=== PATIENT | female | born 1940 | race Caucasian/White ===

== ENCOUNTER 2019-12-15 12:49 | Inpatient (IN) ==
[2019-12-15] MEDS ORDERED: Isovue-370 500 ML BOTTLE IVP ONE (13:36)
[2019-12-15] MEDS ORDERED: Ondansetron 4 MG/2 ML VIAL IVP ONE (13:42)
[2019-12-15] MEDS ORDERED: 0.9 % Sodium Chloride 1,000 ML IVC ONE ×2 (13:42→16:19)
[2019-12-15 14:18] LABS: Bilirubin,Urine Negative (Negative); Blood,Urine Negative (Negative); Clarity,Urine Clear (Clear); Color,Urine Light-Yellow (Yellow); Glucose,Urine (UA) Normal (Normal); Ketones,Urine Negative (Negative); Leukocyte Esterase,Urine Negative (Negative); Nitrite,Urine Negative (Negative); PH,Urine 6.5 pH Units (5.0-8.0); Protein,Urine Trace mg/dL (Neg-Trace); Specific Gravity,Urine 1.018 (1.010-1.025); Urobilinogen,Urine Normal (Normal)
[2019-12-15 14:41] LABS: Basophils # 0.1 K/mcL (0.0-0.2); Basophils % 1.1 %; Eosinophils % 0.2 %; Hematocrit 32.1 % (35.3-44.9); Hemoglobin 10.7 g/dL (11.5-15.4); Immature Granulocytes % 0.2 % (0-4); Lymphocytes % 23.1 %; Mean Corpuscular HGB Conc 33.3 g/dL (31.6-35.5); Mean Corpuscular Hemoglobin 33.3 pg (28.0-33.3); Mean Platelet Volume 9.6 fL (9.4-12.4); Monocytes # 0.3 K/mcL (0.0-1.3); Monocytes % 6.9 %; Platelet Count 223 K/mcL (140-400); Red Blood Count 3.21 M/mcL (3.82-4.97); Red Cell Distribution Width 13.3 % (11.5-14.5); Segmented Neutrophils % 68.5 %; White Blood Count 4.4 K/mcL (4.3-11.1)
[2019-12-15 15:14] LABS: Albumin 3.6 g/dL (3.5-5.7); Albumin/Globulin Ratio 1.2 (1.1-2.2); Bilirubin,Direct 0.2 mg/dL (0.0-0.2); Bilirubin,Total 1.2 mg/dL (0.3-1.0); Calcium 13.6 mg/dL (8.6-10.3); Potassium 3.4 mEq/L (3.5-5.1); Total Protein 6.6 g/dL (6.4-8.9); Troponin I 0.04 ng/mL (< 0.04)
[2019-12-15] MEDS ORDERED: Zoledronic Acid (Zometa) 3 MG in 0.9 % Sodium Chloride 100 ML IV ONE (16:19)
[2019-12-15] MEDS ORDERED: Naloxone 0.4 MG/ML INJ IVP PRN (16:57)
[2019-12-15] MEDS ORDERED: 0.9 % Sodium Chloride 1,000 ML IVC SCH (17:30)
[2019-12-15] MEDS: Pantoprazole 40 MG VIAL IVP SCH (18:52)
[2019-12-16 01:10] LABS: Albumin 3.2 g/dL (3.5-5.7); Albumin/Globulin Ratio 1.2 (1.1-2.2); Bilirubin,Total 1.1 mg/dL (0.3-1.0); Calcium 11.7 mg/dL (8.6-10.3); Globulin 2.6 g/dL (2.4-3.5); Potassium 3.9 mEq/L (3.5-5.1); Total Protein 5.8 g/dL (6.4-8.9)
[2019-12-16] MEDS: Ondansetron 4 MG/2 ML VIAL IVP PRN ×3 (02:31→16:44)
[2019-12-16] MEDS: Acetaminophen 325 MG TABLET PO PRN (02:41)
[2019-12-16 05:05] LABS: Basophils % 0.4 %; Eosinophils % 0.2 %; Hematocrit 31.8 % (35.3-44.9); Hemoglobin 10.5 g/dL (11.5-15.4); Immature Granulocytes % 0.6 % (0-4); Lymphocytes # 0.2 K/mcL (0.6-4.6); Mean Corpuscular Volume 102.9 fL (83.0-100.0); Monocytes # 0.1 K/mcL (0.0-1.3); Monocytes % 1.7 %; Neutrophils # 4.4 K/mcL (1.6-8.9); Platelet Count 143 K/mcL (140-400); Red Blood Count 3.09 M/mcL (3.82-4.97); Red Cell Distribution Width 13.4 % (11.5-14.5); Segmented Neutrophils % 93.1 %; White Blood Count 4.7 K/mcL (4.3-11.1)
[2019-12-16 05:42] LABS: Platelet Estimate Normal (Normal)
[2019-12-16] MEDS ORDERED: *HR* Enoxaparin 40 MG/0.4 ML SYRINGE SQ SCH (06:00)
[2019-12-16] MEDS ORDERED: 0.9 % Sodium Chloride 1,000 ML IVC SCH (07:30)
[2019-12-16] MEDS: Pantoprazole 40 MG VIAL IVP SCH (08:22)
[2019-12-17] MEDS: Acetaminophen 325 MG TABLET PO PRN (00:01)
[2019-12-17 03:27] LABS: Basophils % 0.3 %; Eosinophils % 0.8 %; Hematocrit 27.1 % (35.3-44.9); Immature Granulocytes % 1.4 % (0-4); Lymphocytes # 0.1 K/mcL (0.6-4.6); Lymphocytes % 3.9 %; Mean Corpuscular HGB Conc 32.8 g/dL (31.6-35.5); Mean Corpuscular Hemoglobin 33.1 pg (28.0-33.3); Mean Corpuscular Volume 100.7 fL (83.0-100.0); Mean Platelet Volume 9.8 fL (9.4-12.4); Monocytes # 0.1 K/mcL (0.0-1.3); Monocytes % 1.7 %; Neutrophils # 3.3 K/mcL (1.6-8.9); Platelet Count 120 K/mcL (140-400); Red Blood Count 2.69 M/mcL (3.82-4.97); Red Cell Distribution Width 13.5 % (11.5-14.5); Segmented Neutrophils % 91.9 %; White Blood Count 3.6 K/mcL (4.3-11.1)
[2019-12-17 03:33] LABS: Hemoglobin 8.9 g/dL (11.5-15.4)
[2019-12-17 03:46] LABS: Albumin 2.9 g/dL (3.5-5.7); Albumin/Globulin Ratio 1.3 (1.1-2.2); Bilirubin,Total 0.7 mg/dL (0.3-1.0); Calcium 9.8 mg/dL (8.6-10.3); Globulin 2.3 g/dL (2.4-3.5); Total Protein 5.2 g/dL (6.4-8.9)
[2019-12-17 04:00] LABS: Platelet Estimate Normal (Normal)
[2019-12-17] MEDS: *HR* Enoxaparin 30 MG/0.3 ML SYRINGE SQ SCH (04:49)
[2019-12-17] MEDS: Piperacillin/Tazobactam 3.375 GM in 0.9 % Sodium Chloride Mini Bag 100 ML IVPB SCH ×3 (08:42→23:59)
[2019-12-17] MEDS: Pantoprazole 40 MG VIAL IVP SCH (08:44)
[2019-12-18] MEDS: *HR* Enoxaparin 30 MG/0.3 ML SYRINGE SQ SCH (05:11)
[2019-12-18] MEDS ORDERED: carvediloL 6.25 MG TABLET PO SCH (08:00)
[2019-12-18] MEDS: Aspirin Enteric Coated 81 MG Tablet PO SCH (08:34)
[2019-12-18] MEDS: Pantoprazole 40 MG VIAL IVP SCH (08:34)
[2019-12-18] MEDS: Piperacillin/Tazobactam 3.375 GM in 0.9 % Sodium Chloride Mini Bag 100 ML IVPB SCH (08:35)
[2019-12-18] MEDS ORDERED: IBRANCE 100 MG PO SCH (09:00)
[2019-12-18 11:22] LABS: Potassium 3.6 mEq/L (3.5-5.1)
[2019-12-18 11:24] LABS: Hematocrit 28.7 % (35.3-44.9); Hemoglobin 9.5 g/dL (11.5-15.4); Mean Corpuscular HGB Conc 33.1 g/dL (31.6-35.5)
[2019-12-18 11:26] LABS: Eosinophils # 0.1 K/mcL (0.0-0.6); Immature Platelets 3.4 % (1.1-6.1); Lymphocytes # 0.3 K/mcL (0.6-4.6); Mean Corpuscular Hemoglobin 33.5 pg (28.0-33.3); Mean Corpuscular Volume 101.1 fL (83.0-100.0); Neutrophils # 2.3 K/mcL (1.6-8.9); Platelet Count 110 K/mcL (140-400); Red Blood Count 2.84 M/mcL (3.82-4.97); Red Cell Distribution Width 13.4 % (11.5-14.5); White Blood Count 2.7 K/mcL (4.3-11.1)
[2019-12-18 11:42] LABS: Magnesium 1.5 mg/dL (1.6-2.6); Phosphorous < 1.0 mg/dL (2.7-4.5)
[2019-12-18] MEDS ORDERED: Magnesium Sulfate 1 GM/102 ML PIGGYBACK IVPB ONE ×2 (11:54→14:00)
[2019-12-18] MEDS ORDERED: 0.9 % Sodium Chloride 500 ML IVC SCH (12:00)
[2019-12-18 13:28] LABS: Platelet Estimate Slight Decrease (Normal)
[2019-12-18] MEDS: carvediloL 6.25 MG TABLET PO SCH (17:31)
[2019-12-19] MEDS: *HR* Enoxaparin 30 MG/0.3 ML SYRINGE SQ SCH (05:01)
[2019-12-19 07:06] VITALS: BP 150/68
[2019-12-19 07:48] LABS: Calcium 8.1 mg/dL (8.6-10.3); Magnesium 1.6 mg/dL (1.6-2.6); Phosphorous 3.7 mg/dL (2.7-4.5); Potassium 3.7 mEq/L (3.5-5.1)
[2019-12-19] MEDS: Aspirin Enteric Coated 81 MG Tablet PO SCH (07:48)
[2019-12-19] MEDS: Pantoprazole 40 MG VIAL IVP SCH (07:49)
[2019-12-19] MEDS: carvediloL 6.25 MG TABLET PO SCH (07:49)
[2019-12-19] MEDS ORDERED: Amoxicillin/Clavulanate 500 MG TABLET PO SCH (08:00)
[2019-12-19] MEDS ORDERED: FLU Vac QV 20-21 (6Month+)/PF 0.5 ML SYRINGE IM ONE (08:32)
== END 2019-12-19 09:10 | disposition home health service (06) | DRG 918 ==
LOC: EMEROOARM 12:49 → 2ANU 12:49 → SUATTDRO 12-17 15:31
PROVIDERS: ADMIT Family Medicine; ATTEND Internal Medicine